=== PATIENT | female | born 1965 | race Two or more races ===

== ENCOUNTER 2025-02-03 16:37 | Emergency (ER) | payer OTHER ==
[~2025-02-03] VITALS: Ht 177.8 cm; Wt 95.3 kg
[2025-02-03 18:31] LABS: BASO % 0.7 % (0.1-1.2); EOS # 0.19 (0.04-0.54); EOS % 2.5 % (0.7-7.0); HEMATOCRIT 38.4 % (34.1-44.9); HEMOGLOBIN 12.8 g/dL (11.2-15.7); LYMPH # 2.12 (1.18-3.74); LYMPH % 27.6 % (19.3-53.1); MONO # 1.26 (0.24-0.82); NEUT # 4.04 (1.56-6.13); NEUT % 52.5 % (34.0-71.1); PLATELET COUNT 251 K/uL (163-369); RED BLOOD COUNT 4.27 M/uL (3.93-5.22); RED CELL DISTRIBUTION WIDTH 12.1 % (11.6-14.4)
[2025-02-03 18:41] LABS: MONO % 16.4 % (4.7-12.5)
[2025-02-03] MEDS ORDERED: ANALPRAM HC 2.530 GM RECTAL (19:01)
== END 2025-02-03 19:14 | disposition home or self-care (01) ==
LOC: ER 18:53
PROVIDERS: General Practice
DX: K64.8 Other hemorrhoids (principal)